=== PATIENT | male | born 1960 | race Caucasian/White ===

== ENCOUNTER 2017-04-27 02:00 | Emergency (ER) | payer BC, OTHER ==
[~2017-04-27] VITALS: Ht 190.5 cm; Wt 97.2 kg
[~2017-04-27 02:00] MED LIST: CENTTAB9 PO; FISHCAP
[2017-04-27 02:08] VITALS: BP 150/92; PULSE 78; RESP 12; TEMP 98.4; O2SAT 95
[2017-04-27] MEDS ORDERED: LIVA2TAB PO (02:14)
[2017-04-27] MEDS ORDERED: BACT800T5 PO (02:33)
--- NOTE | 2017-04-27 02:34 | PD ---
HPI Chief Complaint: Skin Problem Time Seen by Provider: 02:30 Travel History International Travel<30 days: No Contact w/Intl Traveler<30days: No Traveled to known affect area: No History of Present Illness HPI 57-year-old man with right fifth digit pain redness and swelling. He had a hangnail, chewed at it, and then went swimming and now he has some redness there. No other complaints. History Past Medical History Narrative Medical Hyperlipidemia Tetanus Vaccination: Unknown Social History Alcohol Use: Yes Tobacco Use: No Allergies-Medications (Allergen,Severity, Reaction): Coded Allergies: Minoxidil (Verified Allergy, Intermediate, 04/27/17) Reported Meds & Prescriptions Reported Meds & Active Scripts Active Reported Livalo (Pitavastatin) 2 Mg Tab 2 Mg PO DAILY Review of Systems Except as stated in HPI: all other systems reviewed are Neg Physical Exam Narrative GENERAL: Well-appearing 57 year-old woman, no acute distress. SKIN: Warm and dry. CARDIOVASCULAR: Warm and well perfused. RESPIRATORY: Normal rate and effort. MUSCULOSKELETAL: Right fifth digit with some erythema redness on the medial edge were there is a little bit of a wound, and some ecchymosis just proximal to the nailbed. NEUROLOGICAL: Awake and alert. No gross deficits. Data Data Last Documented VS Vital Signs Date Time Temp Pulse Resp B/P Pulse Ox O2 Delivery O2 Flow Rate FiO2 04/27/17 02:08 98.4 78 12 150/92 95 MDM Medical Decision Making Medical Screen Exam Complete: Yes Emergency Medical Condition: Yes Differential Diagnosis Paronychia, felon, infection, other Narrative Course Medical decision making 57-year-old male who looks a paronychia. Was drained in the emergency department just a tiny bit of purulent drainage expressed. We'll recommend warm compresses, Bactrim about improving. Diagnosis Primary Impression: Paronychia Additional Instructions: Do warm soaks for 15 minutes at a time, 4 Times daily. Return to the emergency department for any new or worsening symptoms. Review of any worsening redness or swelling, or fever not improved by Sunday, take Bactrim as prescribed. Med/Other Pt SpecificInfo: Prescription(s) given Scripts Sulfamethoxazole-Trimethoprim (Bactrim DS)800-160 Mg Tab1 Tab PO BID 5 Days Prov:Tee Raman MD 04/27/17 Disposition: 01 DISCHARGE HOME Condition: Stable Tee Raman MD Apr 27, 2017 02:34
== END 2017-04-27 02:44 | disposition home or self-care (01) ==
LOC: PHED 02:00
DX: L03.011 Cellulitis of right finger (principal); E78.5 Hyperlipidemia, unspecified
CPT/HCPCS: 99283